=== PATIENT | male | born 1950 ===

== ENCOUNTER 2017-11-03 19:33 | Emergency (ER) | payer OTHER ==
[~2017-11-03] VITALS: Ht 198.1 cm; Wt 89.8 kg
[~2017-11-03 19:33] MED LIST: ALPHAGAN P5 M1; LUMIGAN2.5 ML
== END 2017-11-03 22:53 | disposition home or self-care (01) ==
LOC: ER 19:33
DX: J11.1 Influenza due to unidentified influenza virus with other respiratory manifestations (principal)